=== PATIENT | female | born 1985 | race Hispanic/Latino ===

== ENCOUNTER 2021-06-10 14:43 | Emergency (ER) | payer SELFPAY ==
[2021-06-10 15:17] VITALS: BP 114/77; PULSE 82
--- NOTE | 2021-06-10 17:33 | PCM.EKG ---
#1 Interpretation EKG Date: 06/10/21 Time: 14:43 Rhythm: NSR Rate (Beats/Min): 80 Allison: Normal P-Wave: Present QRS: Normal ST-T: Normal QT: Normal NV/PQ Interval: 127 EKG Interpretation Comments: normal EKG
== END 2021-06-10 17:41 | disposition left against medical advice (07) ==
LOC: MW.ED 14:43
DX: Z53.21 Procedure and treatment not carried out due to patient leaving prior to being seen by health care provider (principal)
CPT/HCPCS: 93005

== ENCOUNTER 2021-06-10 17:52 | Emergency (ER) | payer SELFPAY ==
--- NOTE | 2021-06-10 20:05 | PCM.EKG ---
#1 Interpretation EKG Date: 06/10/21 Time: 19:57 Rhythm: NSR Rate (Beats/Min): 70 ST-T: Normal
--- NOTE | 2021-06-10 20:52 | EDM.PDOC ---
ED HPI GENERAL MEDICAL PROBLEM - General Chief Complaint: Chest Pain Stated Complaint: CHEST PAINS Time Seen by Provider: 06/10/21 20:16 Source of Information: Reports: Patient History Limitations: Reports: No Limitations - History of Present Illness INITIAL COMMENTS - FREE TEXT/NARRATIVE: HISTORY AND PHYSICAL: History of present illness: Patient is a 36-year-old female who presents emergency room today with concern of palpitations and elevated heart rate earlier today. Patient states that this morning, she began feeling funny and states that she felt like her heart was ra cing. Patient states that she has a pulse oximeter and put it on her finger and her heart was varying from 150s to 170s. Patient states that this occurred for approximately 30 minutes before it improved and states that she now feels otherwise fine. Patient states that she does feel random palpitations but states that they never last very long. Patient states she did have a similar episode of this 2 years ago but states that she has not had this occur since. Patient was told that she may need a Holter monitor but states that she never ended up getting this done. Patient states that she drinks very little caffeine and has not had any today. Patient denies any current symptoms at this time. Patient denies any cardiac history, syncope or near syncope, or exertional palpitations. Patient denies fever, chills, chest pain, shortness of breath, or cough. Denies headache, neck stiff ness, change in vision, syncope, or near syncope. Denies nausea, vomiting, abdominal pain, diarrhea, constipation, or dysuria. Has not noted any blood in urine or stool. Patient has been eating and drinking appropriately. Review of systems: As per history of present illness and below otherwise all systems reviewed and negative. Past medical history: As per history of present illness and as reviewed below otherwise noncontributory. Surgical history: As per history of present illness and as reviewed below otherwise noncontributory. Social history: See social history for further information Family history: As per history of present illness and as reviewed below otherwise noncontributory. Physical exam: General: Patient is alert, oriented, and in no acute distress. Patient sitting comfortably on exam table. Vitals stable and reviewed by me. HEENT: Atraumatic, normocephalic, pupils equal and reactive bilaterally, negative for conjunctival pallor or scleral icterus, mucous membranes moist,throat clear, neck supple, nontender, trachea midline. No drooling or trismus noted. No meningeal signs. No hot potato voice noted. Lungs: Clear to auscultation, breath sounds equal bilaterally, chest nontender. Heart: S1S2, regular rate and rhythm without overt murmur Abdomen: Soft, nondistended, nontender. Negative for masses or hepatosplenomegaly. Negative for costovertebral tenderness. Pelvis: Stable nontender. Genitourinary: Deferred. Rectal: Deferred. Skin: Intact, warm, dry. No lesions or rashes noted. Extremities: Atraumatic, negative for cords or calf pain. Neurovascular unremarkable. Neuro: Awake, alert, oriented. Cranial nerves II through XII unremarkable. Cerebellum unremarkable. Motor and sensory unremarkable throughout. Exam nonfocal. Notes: Patient is a 36-year-old female who presents emergency room today with concern of palpitations and elevated heart rate that occurred earlier today. Upon arrival to the ED, patient is vitally stable and well-appearing on exam. Patient currently has no symptoms at this time but did document a heart rate of 170 earlier on a pulse oximeter. Will obtain basic lab work, TSH, and 1 view chest x-ray, and reassess patient. See Dr. Jackson's dictation for specific EKG interpretation. However, normal sinus rhythm without STEMI or acute changes. Mild derangements of labwork today unremarkable. hCG negative. Troponin negative. TSH within normal limits. Chest x-ray 1 view shows no acute cardiopulmonary findings. Upon reevaluation of patient, she remains vitally stable and comfortable throughout stay in ED. Patient does not have any returning of her palpitations today in the emergency room. Patient is sent home with outpatient Holter monitor placement. Strict return precautions thoroughly discussed with patient. Discussed importance for follow-up with primary care provider. Voices understanding and is agreeable to plan of care. Denies any further questions or concerns at this time. Diagnostics: EKG, CBC, CMP, chest x-ray 1 view, troponin, TSH, serum hcg Therapeutics: None Prescription: Outpatient Holter monitor placement Impression: Palpitations Plan: 1. Wear the Holter monitor for 2 weeks as discussed. Come in the morning with the hand written script provided to you today in order to get this placed. 2. After 2 weeks, the results will be sent to Internal Medicine primary provider, Dr. Mcdaniel who will follow and interpret the Holter Monitor. Call Dr. Mcdaniel's clinic in the morning to set up an appointment time for when your Holter monitor results are completed for further evaluation and assessment. The number has been provided above for you to call and establish an appointment time. 3. Return to the ED as needed and as discussed. Definitive disposition and diagnosis as appropriate pending reevaluation and review of above. - Related Data Allergies Allergy/AdvReac Type Severity Reaction Status Date / Time Penicillins Allergy Mild intching Verified 06/10/21 19:53 Home Meds: Home Meds . [No Known Home Meds] 06/10/21 [History] Past Medical History - Past Health History Medical/Surgical History: Denies Medical/Surgical History Other Cardiovascular History: tachycardia - Infectious Disease History Infectious Disease History: Reports: None Social & Family History - Family History Family Medical History: No Pertinent Family History - Tobacco Use Tobacco Use Status *Q: Never Tobacco User - Caffeine Use Caffeine Use: Reports: Soda - Recreational Drug Use Recreational Drug Use: No ED ROS GENERAL - Review of Systems Review Of Systems: Comprehensive ROS is negative, except as noted in HPI. ED EXAM, GENERAL - Physical Exam Exam: See Below (see dictation) Course - Vital Signs Last Recorded V/S: Last Vital Signs Temp 97.7 F 06/10/21 19:54 Pulse 100 06/10/21 19:54 Resp 18 06/10/21 19:54 BP 127/84 06/10/21 19:54 Pulse Ox 99 06/10/21 19:54 - Orders/Labs/Meds Labs: Laboratory Tests 06/10/21 06/10/21 06/10/21 Range/Units 20:36 20:36 20:36 WBC 8.32 (4.0-11.0) K/uL RBC 4.61 (4.30-5.90) M/uL Hgb 14.7 (12.0-16.0) g/dL Hct 41.7 (36.0-46.0) % MCV 90.5 (80.0-98.0) fL MCH 31.9 (27.0-32.0) pg MCHC 35.3 (31.0-37.0) g/dL RDW Std Deviation 41.4 (28.0-62.0) fl RDW Coeff of [place]ak 13 (11.0-15.0) % Plt Count 226 (150-400) K/uL MPV 12.60 H (7.40-12.00) fL Neut % (Auto) 51.8 (48.0-80.0) % Lymph % (Auto) 39.8 (16.0-40.0) % [place] % (Auto) 7.1 (0.0-15.0) % Eos % (Auto) 0.8 (0.0-7.0) % Baso % (Auto) 0.5 (0.0-1.5) % Neut # (Auto) 4.3 (1.4-5.7) K/uL Lymph # (Auto) 3.3 H (0.6-2.4) K/uL [place] # (Auto) 0.6 (0.0-0.8) K/uL Eos # (Auto) 0.1 (0.0-0.7) K/uL Baso # (Auto) 0.0 (0.0-0.1) K/uL Nucleated RBC % 0.0 /100WBC Nucleated RBCs # 0 K/uL Sodium 142 (136-145) mmol/L Potassium 3.9 (3.5-5.1) mmol/L Chloride 106 (98-107) mmol/L Carbon Dioxide 25.3 (21.0-32.0) mmol/L BUN 13 (7.0-18.0) mg/dL Creatinine 0.9 (0.6-1.0) mg/dL Est Cr Clr Drug Dosing 77.01 mL/min Estimated GFR (MDRD) > 60.0 ml/min Glucose 116 H (74-106) mg/dL Calcium 8.7 (8.5-10.1) mg/dL Phosphorus 3.5 (2.6-4.7) mg/dL Magnesium 2.0 (1.8-2.4) mg/dL Total Bilirubin 0.7 (0.2-1.0) mg/dL AST 12 L (15-37) IU/L ALT 22 (14-63) IU/L Alkaline Phosphatase 97 (46-116) U/L Troponin I < 0.050 (0.000-0.056) ng/mL Total Protein 7.7 (6.4-8.2) g/dL Albumin 3.8 (3.4-5.0) g/dL Globulin 3.9 (2.6-4.0) g/dL Albumin/Globulin Ratio 1.0 (0.9-1.6) TSH, Ultra Sensitive 0.88 (0.36-3.74) uIU/mL HCG, Qual NEGATIVE (NEG) Departure - Departure Time of Disposition: 21:36 Disposition: Home, Self-Care 01 Clinical Impression: Palpitations - Discharge Information Referrals: PCP,None [Primary Care Provider] - Forms: ED Department Discharge Additional Instructions: The following information is given to patients seen in the emergency department who are being discharged to home. This information is to outline your options for follow-up care. We provide all patients seen in our emergency department with a follow-up referral. The need for follow-up, as well as the timing and circumstances, are variable depending upon the specifics of your emergency department visit. If you don't have a primary care physician on staff, we will provide you with a referral. We always advise you to contact your personal physician following an emergency department visit to inform them of the circumstance of the visit and for follow-up with them and/or the need for any referrals to a consulting specialist. The emergency department will also refer you to a specialist when appropriate. This referral assures that you have the opportunity for follow-up care with a sp ecialist. All of these measure are taken in an effort to provide you with optimal care, which includes your follow-up. Under all circumstances we always encourage you to contact your private physicia n who remains a resource for coordinating your care. When calling for follow-up care, please make the office aware that this follow-up is from your recent emergency room visit. If for any reason you are refused follow-up, please contact the [facility] Emergency Department at and asked to speak to the emergency department charge nurse. [facility], Dr. Mcdaniel Primary [facility] [address] [place] [id number] 1. Wear the Holter monitor for 2 weeks as discussed. Come in the morning with the hand written script provided to you today in order to get this placed. 2. After 2 weeks, the results will be sent to Internal Medicine primary provider, Dr. Mcdaniel who will follow and interpret the Holter Monitor. Call Dr. Mcdaniel's clinic in the morning to set up an appointment time for when your Holter monitor results are completed for further evaluation and assessment. The number has been provided above for you to call and establish an appointment time. 3. Return to the ED as needed and as discussed. Sepsis Event Note (ED) - Focused Exam Vital Signs: Vital Signs Temp Pulse Resp BP Pulse Ox 06/10/21 19:54 97.7 F 100 18 127/84 99
[2021-06-10 21:25] LABS: BLOOD UREA NITROGEN,BUN 13 mg/dL (7.0-18.0); CARBON DIOXIDE,CO2 25.3 mmol/L (21.0-32.0); CHLORIDE,CL 106 mmol/L (98-107); GLUCOSE RANDOM 116 mg/dL (74-106); POTASSIUM,K 3.9 mmol/L (3.5-5.1); SODIUM,NA 142 mmol/L (136-145)
--- NOTE | 2021-06-10 21:33 | CR ---
INDICATION: Cough and shortness of breath. TECHNIQUE: Chest 1 view. COMPARISON: None FINDINGS: Cardiovascular and mediastinum: Heart size and vasculature are normal in caliber and appearance. Mediastinum is within normal limits. Lungs and pleural space: Lungs are clear. No sign of infiltrate or mass. No sign of pleural effusion. No pneumothorax. Bones and soft tissues: No significant findings. IMPRESSION: Unremarkable chest. Dictated by Roby Carr MD @ 06/10/2021 9:32:42 PM (Electronically Signed)
[2021-06-10 21:53] VITALS: BP 122/86; PULSE 73
== END 2021-06-10 21:44 | disposition home or self-care (01) ==
LOC: MW.ED 17:52
DX: R00.2 Palpitations (principal); Z88.0 Allergy status to penicillin
CPT/HCPCS: 36415; 71045; 71045-26; 80053; 83735; 84100; 84443; 84484; 84703; 85025; 99283; 99285-25